=== PATIENT | male | born 1995 | race Caucasian/White ===

== ENCOUNTER 2018-10-19 02:21 | Emergency (ER) | payer BC ==
[~2018-10-19] VITALS: Ht 185.4 cm; Wt 65.9 kg
[2018-10-19 02:25] VITALS: TEMP 97.5
[2018-10-19] MEDS ORDERED: MULTI VITAMINS1 TAB PO (02:29)
[2018-10-19] MEDS ORDERED: ZOLOFT 50MG50 MG PO (02:29)
[2018-10-19 02:47] LABS: BASO % 0.3 % (0.0-2.0); EOS % 0.1 % (0-4.0); GRAN % 84.5 % (42.2-75.2); HEMATOCRIT 53.2 % (42.0-52.0); HEMOGLOBIN 18.8 g/dl (13.5-18.0); LYMPH % 8.6 % (20.0-51.0); MEAN CELL VOLUME 91 fl (80.0-100.0); MEAN CORPUSCULAR HEMOGLOBIN 32 pg (27.0-31.0); MEAN CORPUSCULAR HGB CONC 35 g/dl (33.0-37.0); MEAN PLATELET VOLUME 9.8 fl (7.4-10.4); MONO # 0.7 (0.1-0.6); MONO % 6.2 % (1.7-9.3); PLATELET COUNT 191 K/mm3 (130-400); RED BLOOD COUNT 5.82 M/mm3 (4.20-5.60); REDCELL DISTRIBUTION WIDTH-CV 12.4 % (11.5-14.5)
[2018-10-19 02:57] LABS: ALBUMIN 4.7 gm/dL (3.5-5.0); BILIRUBIN,TOTAL 1.4 mg/dL (0.0-1.0); CALCIUM 9.9 mg/dL (8.4-10.2); CREATININE, serum 1.02 mg/dL (0.66-1.25); TOTAL PROTEIN 8.3 gm/dL (6.4-8.2)
[2018-10-19] MEDS ORDERED: ZOFRAN ODT4 MG PO (03:47)
[2018-10-19 07:12] VITALS: BP 123/56; PULSE 114
== END 2018-10-19 07:38 | disposition home or self-care (01) ==
LOC: COL.ER 02:21
PROVIDERS: Emergency Medicine
DX: R19.7 Diarrhea, unspecified (principal); R11.10 Vomiting, unspecified; F32.9 Major depressive disorder, single episode, unspecified
CPT/HCPCS: J2405; J2550; J7030